=== PATIENT | male | born 1990 | race Caucasian/White ===

== ENCOUNTER 2016-12-06 12:33 | Emergency (ER) | payer OTHER ==
[2016-12-06] MEDS ORDERED: HYDROmorphone 1 MG/ML SYRINGE IVP STA (12:43)
[2016-12-06] MEDS ORDERED: HYDROmorphone 1 MG/ML SYRINGE ONE (12:49)
[2016-12-06] MEDS ORDERED: cefTRIAXone 250 MG VIAL IM STA (14:19)
[2016-12-06] MEDS ORDERED: cefTRIAXone 250 MG VIAL ONE (14:20)
[2016-12-06] MEDS ORDERED: LIDOCAINE 1% 2 ML VIAL ONE (14:21)
== END 2016-12-06 14:43 | disposition home or self-care (01) ==
DX: N45.1 Epididymitis (principal)
CPT/HCPCS: 76870; 81003; 87491; 87591; 93975; 96372; 96374; 99283; J1170